=== PATIENT | female | born 1945 | race Asian ===

== ENCOUNTER 2017-07-11 07:07 | Emergency (ER) | payer MEDICARE ==
[~2017-07-11] VITALS: Ht 154.9 cm; Wt 63.5 kg
[~2017-07-11 07:07] MED LIST: ATELVIA35 MG; ATELVIA35 MG PO; CALCITONIN SPRAY; CATAPRESS3 TRANSDERM; CELLCEPT500 MG; CHOLEST OFF450 MG PO; CIPROFLOXACIN500 M1 PO; CLONIDINE-TTS0.3 MG; FISH OIL 1,001000 M2 PO; GLUCOPHAGE500 MG PO; GLUCOTROL5 MG; HYDROCODON-ACE1 EAC7 PO; IRON; LABETALOL 100100 MG; MAGOX 400400 MG; MIACALCIN200 IU/ML NASAL; NIFEDICAL XL60 MG; PREDNISONE 10 M10 M1; PROGRAF1 MG; PYRIDIUM200 MG PO; SIMVASTATIN40 MG; TRAMADOL 50 MG50 MG PO; VITAMIN D1000 UNI1; ZANTAC 150MG T150 M1
[2017-07-11] MEDS ORDERED: IBUPROFEN 600600 M1 PO (09:02)
[2017-07-11] MEDS ORDERED: ULTRAM 50MG TAB50 MG PO (09:02)
[2017-07-11 09:14] VITALS: BP 153/84
== END 2017-07-11 09:18 | disposition home or self-care (01) ==
LOC: M.ERS 07:07
DX: S43.491A Other sprain of right shoulder joint, initial encounter (principal); I10 Essential (primary) hypertension; Z94.0 Kidney transplant status; X58.XXXA Exposure to other specified factors, initial encounter; Y93.89 Activity, other specified; Y92.89 Other specified places as the place of occurrence of the external cause; Y99.8 Other external cause status

== ENCOUNTER 2019-04-17 09:44 | Emergency (ER) | payer MEDICARE ==
[~2019-04-17] VITALS: Ht 157.5 cm; Wt 64.4 kg
[~2019-04-17 09:44] MED LIST changes: +IBUPROFEN 600600 M1 PO; +ULTRAM 50MG TAB50 MG PO
[2019-04-17] MEDS ORDERED: FOSAMAX 70 MG T70 MG PO (10:08)
[2019-04-17] MEDS ORDERED: MAGNESIUM400 MG PO (10:09)
[2019-04-17] MEDS ORDERED: LIPITOR40 MG PO (10:09)
[2019-04-17] MEDS ORDERED: ASA81BEC PO (10:09)
[2019-04-17] MEDS ORDERED: PREDNISONE 10 M10 MG PO (10:10)
[2019-04-17 10:13] LABS: ABSOLUTE BASOPHILS 0.1 thou/uL (0.0-0.2); ABSOLUTE EOSINOPHILS 0.3 thou/uL (0.0-0.7); ABSOLUTE LYMPHOCYTES 1.3 thou/uL (0.8-5.3); ABSOLUTE MONOCYTES 0.7 thou/uL (0.0-1.2); ABSOLUTE NEUTROPHILS 7.2 thou/uL (1.6-8.1); EOSINOPHILS 3.2 %; HEMATOCRIT 38.5 % (37.0-47.0); HEMOGLOBIN 12.6 gm/dL (12.0-15.0); LYMPHOCYTES 13.6 %; MCH 24.1 pg (26.0-34.0); MCHC 32.7 g/dL (28.0-37.0); MCV 73.9 fL (80.0-100.0); MONOCYTES 7.4 %; MPV 7.4 fl. (7.2-11.1); NUCLEATED RBCS 0 /100WBC; PLATELET COUNT* 413 thou/uL (150-400); POLYS 74.8 %; RBC 5.21 mil/uL (4.20-5.00); RDW-CV 15.3 % (10.5-14.5); WBC 9.6 thou/uL (4.0-11.0)
[2019-04-17 10:21] LABS: CALCIUM 8.7 mg/dL (8.5-10.1); CREATININE 0.8 mg/dL (0.6-1.3); POTASSIUM 4.3 mmol/L (3.5-5.1)
--- NOTE | 2019-04-17 10:26 | EKG ---
[place] [address] ELECTROCARDIOGRAM REPORT Name: ZORAIDA CHE Room: [facility]#: [id number] Admission: 04/17/19 Attend Phys: Discharge: Date of : 47 Report #: [id number] THIS REPORT FOR: //name// [facility] ED Test Date: 2019-04-17 Test Time: 09:52:12 Pat Name: ZORAIDA CHE Department: Room: Gender: F Clerical Coordinator: : 1945 Requested By: Tab Arnett Order Number: [id number] MD: Reynaldo Urias Measurements Intervals [place] Rate: 91 P: -50 NC: 198 QRS: -18 QRSD: 85 T: 4 QT: 344 QTc: 424 Interpretive Statements Sinus rhythm Left ventricular hypertrophy Compared to ECG 07/16/2013 06:45:32 no change Electronically Signed On 04-17-2019 10:25:53 HOSPICE TEAM LEAD by Reynaldo Urias [email or web address] <ELECTRONICALLY SIGNED> By: Reynaldo Urias MD, [facility] 04/17/19 1025 0952 1 Reynaldo Urias MD, FACC /EPI
[2019-04-17 10:31] LABS: ALBUMIN 3.6 g/dL (3.4-5.0); TOTAL BILIRUBIN 0.5 mg/dL (<0.1-1.0); TOTAL PROTEIN 8.5 g/dL (6.4-8.2)
[2019-04-17 11:16] VITALS: BP 165/89
== END 2019-04-17 11:17 | disposition home or self-care (01) ==
LOC: M.ERS 09:44
PROVIDERS: Emergency Medicine
DX: I10 Essential (primary) hypertension (principal); Z94.0 Kidney transplant status

== ENCOUNTER → 2021-05-20 | Outpatient (CLI) | payer MEDICARE ==
[~2021-05-20] MED LIST changes: +ASA81BEC PO; +FOSAMAX 70 MG T70 MG PO; +LIPITOR40 MG PO; +MAGNESIUM400 MG PO; +PREDNISONE 10 M10 MG PO
[2021-05-20 11:37] LABS: HEMATOCRIT 35.5 % (37.0-47.0); HEMOGLOBIN 11.3 gm/dL (12.0-15.0); MCH 26.2 pg (26.0-34.0); MCHC 31.9 g/dL (28.0-37.0); MCV 82.2 fL (80.0-100.0); MPV 8.4 fl. (7.2-11.1); RBC 4.32 mil/uL (4.20-5.00); RDW-CV 17.4 % (10.5-14.5); WBC 12.6 thou/uL (4.0-11.0)
[2021-05-20 11:56] LABS: CALCIUM 8.5 mg/dL (8.5-10.1); CREATININE 0.7 mg/dL (0.6-1.3); MAGNESIUM 1.2 mg/dL (1.8-2.4); PHOSPHORUS* 2.9 mg/dL (2.5-4.9); POTASSIUM 4.1 mmol/L (3.5-5.1); TOTAL BILIRUBIN 0.5 mg/dL (<0.1-1.0); TOTAL PROTEIN 8.1 g/dL (6.4-8.2)
== END ==
LOC: M.LAB 11:14
PROVIDERS: ATTEND Internal Medicine
DX: E83.30 Disorder of phosphorus metabolism, unspecified (principal); E83.40 Disorders of magnesium metabolism, unspecified; Z94.0 Kidney transplant status; Z79.899 Other long term (current) drug therapy